=== PATIENT | female | born 1940 | race Caucasian/White ===

== ENCOUNTER 2017-06-10 09:51 | Inpatient (IN) | payer MEDICARE, OTHER ==
[~2017-06-10] VITALS: Ht 154.9 cm; Wt 90.7 kg
[2017-06-10] MEDS ORDERED: IV NS 0.9% 1,000 ML BAG IV ONE ×2 (11:30→13:30)
[2017-06-10 11:46] LABS: BASOPHILS # (AUTO) 0.1 /CMM (0.0-0.2); BASOPHILS % (AUTO) 0.7 % (0.0-2.0); EOSINOPHILS % (AUTO) 0.5 % (0.0-6.0); HEMATOCRIT 47 % (33-45); HEMOGLOBIN 15.7 g/dL (11.5-14.8); LYMPHOCYTES # (AUTO) 1.4 /CMM (0.8-4.8); MEAN CORPUSCULAR HEMOGLOBIN 29 PG (26.0-33.0); MEAN CORPUSCULAR HGB CONC 34 g/dl (31.0-36.0); MEAN CORPUSCULAR VOLUME 87 fL (82-100); MONOCYTES # (AUTO) 1.1 /CMM (0.1-1.30); MONOCYTES % (AUTO) 12.6 % (2.0-12.0); NEUTROPHILS # (AUTO) 6.2 /CMM (1.8-8.9); NEUTROPHILS % (AUTO) 70.2 % (43.0-81.0); PLATELET COUNT (AUTO) 188 /CMM (150-450); RDW COEFFICIENT OF VARIATION 14.4 (11.5-15.0); RED BLOOD CELL COUNT(AUTO) 5.34 MIL/uL (4.0-5.2); WHITE BLOOD COUNT (AUTO) 8.8 K/uL (4.3-11.0)
[2017-06-10 11:58] LABS: CALCIUM, SERUM 8.5 mg/dL (8.5-10.1); CARBON DIOXIDE 24 mmol/L (21-32); CHLORIDE 99 mmol/L (98-107); CREATININE 1.1 mg/dL (0.6-1.3); GLUCOSE 210 mg/dL (74-106); POTASSIUM 4.9 mmol/L (3.5-5.1); SODIUM SERUM 135 mmol/L (136-145); UREA NITROGEN, BLOOD 21 mg/dL (7-18)
[2017-06-10] MEDS ORDERED: DULO60CA45 PO (12:43)
[2017-06-10] MEDS ORDERED: LEVO100T9 PO (12:43)
[2017-06-10] MEDS ORDERED: POTA20TA83 PO (12:43)
[2017-06-10] MEDS ORDERED: METF10002 PO (12:43)
[2017-06-10] MEDS ORDERED: INSU100I30 SQ (12:43)
[2017-06-10] MEDS ORDERED: TORS20TA3 PO (12:43)
[2017-06-10] MEDS ORDERED: TRAM50TA2 PO (12:43)
[2017-06-10] MEDS ORDERED: SIMV20TA6 PO (12:44)
[2017-06-10] MEDS ORDERED: BENZOIN COMPOUND TINCT 60 ML BOTTLE ONE (13:50)
[2017-06-10] MEDS ORDERED: DILTIAZEM HCL 30 MG TABLET PO ONE (14:00)
[2017-06-10] MEDS ORDERED: DILTIAZEM HCL 30 MG TABLET ONE (14:01)
[2017-06-10 16:00] VITALS: BP 132/78
[2017-06-10 16:15] VITALS: BP 132/78
--- NOTE | 2017-06-10 16:34 | NUR ---
RN NOTES RECEIVED PT FROM ER, A&0X3, ON ROOM AIR NO SOB OR DISTRESS. A FIB ON THE TELE CLARA HR 73. PT ABLE TO AMBULATE WITH WALKER. WALKER PLACED BY BEDSIDE. RFA 18G IV SITE INTACT, NO IVF CURRENTLY. BED LOCKED AND IN LOWEST POSITION, CALL LIGHT WITHIN REACH, WILL CONT TO CLARA.
[2017-06-10] MEDS ORDERED: ENOXAPARIN SODIUM 40 MG/0.4 ML DISP.SYRIN SQ SCH (17:00)
[2017-06-10] MEDS ORDERED: MAGNESIUM HYDROXIDE 30 ML UDC PO PRN (17:00)
[2017-06-10] MEDS ORDERED: HYDROCODONE/APAP 5/325MG 1 EACH TABLET PO PRN (17:00)
[2017-06-10] MEDS ORDERED: Z GUARD REMEDY 2 OZ OINT TP PRN (17:00)
[2017-06-10] MEDS ORDERED: ONDANSETRON HCL/PF 4 MG/2 ML VIAL IVP PRN (17:00)
[2017-06-10] MEDS ORDERED: MAG HYDROX/AL HYDROX/SIMETH 30 ML UDC PO PRN (17:00)
[2017-06-10] MEDS ORDERED: DILTIAZEM HCL IV 125 MG in IV NS 0.9% 100 ML IV PRN (17:00)
[2017-06-10] MEDS ORDERED: ACETAMINOPHEN 325 MG TABLET PO PRN (17:00)
[2017-06-10] MEDS ORDERED: ALBUTEROL FS 2.5 MG/3 ML VIAL.NEB NEB PRN (17:30)
[2017-06-10] MEDS ORDERED: DEXTROSE 50%-WATER 50 ML DISP.SYRIN IV PRN (17:30)
[2017-06-10] MEDS ORDERED: METOPROLOL TARTRATE INJ 5 MG/5 ML AMPUL IVP PRN (17:30)
--- NOTE | 2017-06-10 17:40 | NUR ---
RN NOTES PT CONVERTED TO SR. DR WILLIAM MADE AWARE. JONEL HSU HELD.
[2017-06-10 18:01] LABS: INR 0.96 (0.87-1.13)
[2017-06-10] MEDS: BLOOD SUGAR DIAGNOSTIC 1 EACH STRIP IN SCH ×2 (18:12→21:47)
[2017-06-10] MEDS: INSULIN REGULAR, HUMAN 100 UNIT/ML 3 ML VIAL SQ PRN ×2 (18:12→21:51)
[2017-06-10 18:55] LABS: TROPONIN I 0.041 ng/mL (0.00-0.056)
[2017-06-10] MEDS: ENOXAPARIN SODIUM 100 MG/ML DISP.SYRIN SQ SCH (18:56)
[2017-06-10 19:01] LABS: THYROID STIMULATING HORMONE 2.706 uIU/mL (0.358-3.74)
[2017-06-10 20:00] VITALS: BP 120/52
[2017-06-10] MEDS: IPRATROPIUM NEB FS 0.5 MG/2.5 ML AMPUL.NEB NEB SCH (20:39)
[2017-06-10 21:09] VITALS: BP 120/52
[2017-06-10] MEDS: TRAMADOL HCL 50 MG TABLET PO PRN (21:49)
[2017-06-10] MEDS: CARVEDILOL 6.25 MG TABLET PO SCH (21:50)
[2017-06-10] MEDS: INSULIN GLARGINE, 100 UNIT/ML CARTRIDGE SQ SCH (21:52)
[2017-06-10] MEDS ORDERED: SIMVASTATIN 20 MG TABLET PO SCH (22:00)
[2017-06-10] MEDS: IV NS 0.9% 1,000 ML IV PRN (22:22)
[2017-06-11] VITALS (8 sets, daily range): BP systolic 104–127; BP diastolic 43–72
[2017-06-11] MEDS: BLOOD SUGAR DIAGNOSTIC 1 EACH STRIP IN SCH ×6 (01:06→21:35)
--- NOTE | 2017-06-11 01:11 | NUR ---
RN NOTES PATIENT'S BLOOD SUGAR 142. PATIENT REFUSING SSI AT THIS TIME. EXPLAINED RISKS AND CONSEQUENCES OF REFUSING MD ORDERS. PATIENT VERBALIZES UNDERSTANDING, STILL STRONGLY REFUSING. WILL CONTINUE TO CLOSELY MONITOR. URINE SPECIMEN COLLECTED, LAB CALLED FOR PICKUP.
--- NOTE | 2017-06-11 04:24 | NUR ---
RN NOTES PATIENT'S BLOOD SUGAR 139. PATIENT REFUSING SSI AT THIS TIME. EXPLAINED RISKS AND CONSEQUENCES OF REFUSING MD ORDERS. PATIENT VERBALIZES UNDERSTANDING, STILL STRONGLY REFUSING. WILL CONTINUE TO CLOSELY MONITOR
[2017-06-11 05:15] LABS: APPEARANCE,URINE SL CLOUDY (CLEAR); BILIRUBIN,URINE NEGATIVE (NEGATIVE); BLOOD, URINE NEGATIVE Ery/uL (NEGATIVE); COLOR,URINE YELLOW (YELLOW); KETONES,URINE NEGATIVE (NEGATIVE); LEUKOCYTE ESTERASE ,URINE 3+ (NEGATIVE); NITRITE, URINE NEGATIVE (NEGATIVE); PROTEIN,URINE 1+ mg/dl (NEGATIVE); UGLUCOSE NEGATIVE (NEGATIVE); UROBILINOGEN,URINE 0.2 EU/dL (0.2)
[2017-06-11 05:20] LABS: PH,URINE >9.0 (5.0-8.0)
[2017-06-11 05:42] LABS: BACTERIA,URINE Many /HPF (None Seen); RBC,URINE 0-2 /HPF (0-2); WBC,URINE 21-50 /HPF (0-3)
[2017-06-11 05:43] LABS: SQUAMOUS EPITHELIAL CELL,UR Few /HPF (None Seen)
[2017-06-11] MEDS: ENOXAPARIN SODIUM 100 MG/ML DISP.SYRIN SQ SCH (06:25)
[2017-06-11] MEDS: IPRATROPIUM NEB FS 0.5 MG/2.5 ML AMPUL.NEB NEB SCH ×3 (07:11→19:40)
--- NOTE | 2017-06-11 07:30 | NUR ---
RN PARAMJIT NOTE: PATIENT IN BED, AWAKE ALERT AND ABLE TO MAKE NEEDS KNOWN. RESPIRATION EVEN AND UNLABORED. PER PT, SHE DOES NOT WANT TO USE THE OXYGEN AND SHE FELT BETTER TODAY. SATURATING 97% IN RA. DENIED PAIN AT THIS TIME. PER PT, SHE HAS CHRONIC BACK PAIN IN THE PAST AND IT'S 5/10 AND IT IS TOLERABLE ESPECIALLY WHEN SHE AMBULATES INSIDE THE ROOM GOING TO THE BATHROOM. REPOSITIONING HELP. CALL LIGHT WITHIN REACH. NEEDS ANTICIPATED.
[2017-06-11 07:49] LABS: BASOPHILS % (AUTO) 0.5 % (0.0-2.0); EOSINOPHILS # (AUTO) 0.1 /CMM (0.0-0.7); EOSINOPHILS % (AUTO) 2.1 % (0.0-6.0); HEMATOCRIT 38 % (33-45); HEMOGLOBIN 12.6 g/dL (11.5-14.8); LYMPHOCYTES # (AUTO) 1.6 /CMM (0.8-4.8); LYMPHOCYTES % (AUTO) 37.5 % (20.0-44.0); MEAN CORPUSCULAR HEMOGLOBIN 30 PG (26.0-33.0); MEAN CORPUSCULAR HGB CONC 34 g/dl (31.0-36.0); MEAN CORPUSCULAR VOLUME 89 fL (82-100); MONOCYTES # (AUTO) 0.8 /CMM (0.1-1.30); MONOCYTES % (AUTO) 18.6 % (2.0-12.0); NEUTROPHILS # (AUTO) 1.8 /CMM (1.8-8.9); NEUTROPHILS % (AUTO) 41.3 % (43.0-81.0); PLATELET COUNT (AUTO) 164 /CMM (150-450); RDW COEFFICIENT OF VARIATION 15.6 (11.5-15.0); RED BLOOD CELL COUNT(AUTO) 4.23 MIL/uL (4.0-5.2); WHITE BLOOD COUNT (AUTO) 4.4 K/uL (4.3-11.0)
[2017-06-11 08:08] LABS: CHOLESTEROL 109 mg/dL (<200); HDL CHOLESTEROL 29 mg/dL (40-60); LDL 52 mg/dL (0-99); TRIGLYCERIDES 203 mg/dL (30-150)
[2017-06-11 08:11] LABS: CALCIUM, SERUM 7.8 mg/dL (8.5-10.1); CARBON DIOXIDE 25 mmol/L (21-32); CHLORIDE 106 mmol/L (98-107); CREATININE 0.8 mg/dL (0.6-1.3); GLUCOSE 121 mg/dL (74-106); MAGNESIUM 1.4 mg/dL (1.8-2.4); PHOSPHORUS 3.2 mg/dL (2.5-4.9); POTASSIUM 4.2 mmol/L (3.5-5.1); SODIUM SERUM 140 mmol/L (136-145); UREA NITROGEN, BLOOD 16 mg/dL (7-18)
[2017-06-11 08:13] LABS: IRON, SERUM 35 ug/dl (50-175); TOTAL IRON BINDING CAPACITY 239 ug/dl (250-450)
[2017-06-11] MEDS: LEVOTHYROXINE SODIUM 100 MCG TABLET PO SCH (08:28)
[2017-06-11] MEDS: DULOXETINE HCL 30 MG CAPSULE.DR PO SCH (08:28)
[2017-06-11] MEDS: INSULIN REGULAR, HUMAN 100 UNIT/ML 3 ML VIAL SQ PRN ×3 (08:47→21:39)
[2017-06-11 09:14] LABS: LYMPHOCYTES % (MANUAL) 34 % (16-48); MONOCYTES % (MANUAL) 14 % (0-11.0); NEUTROPHILS % (MANUAL) 52 (42-76)
[2017-06-11] MEDS: CARVEDILOL 6.25 MG TABLET PO SCH ×2 (09:58→21:34)
[2017-06-11] MEDS: TRAMADOL HCL 50 MG TABLET PO PRN ×2 (10:01→21:34)
[2017-06-11 10:44] LABS: THYROID STIMULATING HORMONE 2.579 uIU/mL (0.358-3.74)
[2017-06-11] MEDS: Magnesium 1GM/D5W 100ML PREMIX 100 ML IV SCH ×3 (11:46→14:58)
[2017-06-11] MEDS ORDERED: Magnesium 1GM/D5W 100ML PREMIX 100 ML IV SCH (12:00)
[2017-06-11] MEDS: SOD FERRIC GLUC 125 MG in IV NS 0.9% 100 ML IV SCH (16:17)
--- NOTE | 2017-06-11 20:04 | NUR ---
RN PARAMJIT NOTE: PATIENT IN BED, AWAKE ALERT AND ABLE TO MAKE NEEDS KNOWN. RESPIRATION EVEN AND UNLABORED STILL IN RA SATURATING 95%. PATIENT DENIED PAIN AT THIS TIME. HOB ELEVATED. CALL LIGHT WITHIN REACH. BED ALARM AND LOCKED AT ALL TIMES. (L) FA IV LINE NOTED PATENT AND INTACT. CALL LIGHT WITHIN REACH. REPORT GIVEN TO PM SHIFT NURSE FOR CONTINUITY OF CARE.
[2017-06-11] MEDS: INSULIN GLARGINE, 100 UNIT/ML CARTRIDGE SQ SCH (21:38)
[2017-06-11] MEDS: IV NS 0.9% 1,000 ML IV PRN (21:39)
[2017-06-12] VITALS: BP 133/61
[2017-06-12] MEDS: BLOOD SUGAR DIAGNOSTIC 1 EACH STRIP IN SCH ×6 (00:16→22:13)
[2017-06-12] MEDS: ZOLPIDEM TARTRATE 5 MG TABLET PO PRN (00:17)
[2017-06-12 04:00] VITALS: BP 109/60
--- NOTE | 2017-06-12 04:30 | NUR ---
RN NOTES: RECEIVED REPORT FOR LINDSAY FROM DAVIN ESPINOZA. PT IN BED, AOX4, ON ROOM AIR, BREATHING EVEN AND UNLABORED. APPEARS CALM AND IN NO DISTRESS. BED IN LOWEST AND LOCKED POSITION, SIDERAILS UP X 3. WILL CONT TO MONITOR.
--- NOTE | 2017-06-12 06:39 | NUR ---
TIRE STRIPPER CLOSING NOTES: PATIENT IN BED, AOX4, ON O2 AT 2 LPM VIA NC, BREATHING EVEN AND UNLABORED. APPEARS CALM AND IN NO DISTRESS. ON TELE MONITORING: SR RATE OF 60S. PROVIDED FOR COMFORT AND SAFETY. BED IN LOWEST AND LOCKED POSITION, SIDERAILS UP X 3. CALL LIGHT WITHIN REACH. WILL ENDORSE TO AM RN FOR LINDSAY.
[2017-06-12 07:00] LABS: BASOPHILS % (AUTO) 0.3 % (0.0-2.0); EOSINOPHILS # (AUTO) 0.1 /CMM (0.0-0.7); EOSINOPHILS % (AUTO) 1.6 % (0.0-6.0); HEMATOCRIT 37 % (33-45); HEMOGLOBIN 12.2 g/dL (11.5-14.8); LYMPHOCYTES # (AUTO) 1.4 /CMM (0.8-4.8); LYMPHOCYTES % (AUTO) 31.5 % (20.0-44.0); MEAN CORPUSCULAR HEMOGLOBIN 29 PG (26.0-33.0); MEAN CORPUSCULAR HGB CONC 33 g/dl (31.0-36.0); MEAN CORPUSCULAR VOLUME 88 fL (82-100); MONOCYTES # (AUTO) 0.6 /CMM (0.1-1.30); MONOCYTES % (AUTO) 13.6 % (2.0-12.0); NEUTROPHILS # (AUTO) 2.4 /CMM (1.8-8.9); PLATELET COUNT (AUTO) 163 /CMM (150-450); RDW COEFFICIENT OF VARIATION 15.1 (11.5-15.0); RED BLOOD CELL COUNT(AUTO) 4.14 MIL/uL (4.0-5.2); WHITE BLOOD COUNT (AUTO) 4.5 K/uL (4.3-11.0)
[2017-06-12 07:09] LABS: ALANINE AMINOTRANSFERASE 32 U/L (12-78); ALBUMIN 2.6 g/dL (3.4-5.0); ALKALINE PHOSPHATASE 81 U/L (46-116); ASPARTATE AMINOTRANSFERASE 23 U/L (15-37); BILIRUBIN,TOTAL 0.4 mg/dL (0.2-1.0); CARBON DIOXIDE 26 mmol/L (21-32); CHLORIDE 108 mmol/L (98-107); CREATININE 0.8 mg/dL (0.6-1.3); GLUCOSE 98 mg/dL (74-106); MAGNESIUM 2.1 mg/dL (1.8-2.4); PHOSPHORUS 3.3 mg/dL (2.5-4.9); POTASSIUM 3.8 mmol/L (3.5-5.1); SODIUM SERUM 143 mmol/L (136-145); TOTAL PROTEIN, SERUM 5.9 g/dL (6.4-8.2); UREA NITROGEN, BLOOD 13 mg/dL (7-18)
--- NOTE | 2017-06-12 07:24 | NUR ---
ROLL ICER MACHINE OPENING NOTES RECEIVED PT FROM NIGHTSHIFT NURSE IN STABLE CONDITION. PT IS A/O X3. NO SOB OR SIGNS OF DISTRESS NOTED. BREATHING IS EVEN AND UNLABORED. PT DENIES ANY FEVER OR CHILLS AT THIS TIME. SHE FURTHER DENIES ANY CHEST PAIN OR DISCOMFORT. SHE IS SINUS RHYTHM ON THE TELE MONITOR WITH A HR OF 75. IV NOTED TO BE PATENT AND INTACT INFUSING NS ORDERED. PT TOLERATING INFUSION WELL. NO REDNESS OR SIGNS OF INFILTRATION NOTED. BED IN LOW LOCKED POSITION, SIDE RAILS UP X3, CALL LIGHT WITHIN REACH. WILL CONTINUE TO MONITOR
[2017-06-12] MEDS: IPRATROPIUM NEB FS 0.5 MG/2.5 ML AMPUL.NEB NEB SCH ×2 (07:46→19:55)
[2017-06-12 08:00] VITALS: BP 121/62
[2017-06-12] MEDS: LEVOTHYROXINE SODIUM 100 MCG TABLET PO SCH (09:03)
[2017-06-12] MEDS: INSULIN REGULAR, HUMAN 100 UNIT/ML 3 ML VIAL SQ PRN ×4 (09:04→22:16)
[2017-06-12] MEDS: DULOXETINE HCL 30 MG CAPSULE.DR PO SCH (09:05)
[2017-06-12] MEDS: CARVEDILOL 6.25 MG TABLET PO SCH ×2 (09:06→22:14)
[2017-06-12] MEDS: TRAMADOL HCL 50 MG TABLET PO PRN ×2 (09:06→17:25)
[2017-06-12] MEDS: ENOXAPARIN SODIUM 40 MG/0.4 ML DISP.SYRIN SQ SCH (09:19)
--- NOTE | 2017-06-12 13:00 | NUR ---
RT PT EATING AT THE MOMENT TX REFUSED. NO SOB OR RESP DISTRESS NOTED.
[2017-06-12] MEDS: SOD FERRIC GLUC 125 MG in IV NS 0.9% 100 ML IV SCH (13:57)
[2017-06-12 16:00] VITALS: BP 132/66
--- NOTE | 2017-06-12 18:56 | NUR ---
MS RN CLOSING NOTES PT REMAINS IN STABLE CONDITION. ALL NEEDS MET DURING SHIFT AND ORDERS CARRIED OUT ACCORDINGLY. ALL DUE MEDS GIVEN. IV REMAINS PATENT AND INTACT. SAFETY MEASURES REMAIN IN PLACE. WILL ENDORSE TO NIGHTSHIFT NURSE FOR LINDSAY
--- NOTE | 2017-06-12 20:33 | NUR ---
MS1/RN RECEIVE PATIENT AWAKE, ALERT, ORIENTED, COMFORTABLE, NO C/O PAIN, NO DISTRESS NOTED, JUST AMBULATED FROM THE BATHROOM AND BACK TO BED WHICH SHE TOLERATED WELL, WILL MONITOR.
[2017-06-12 22:00] VITALS: BP 120/71
[2017-06-12] MEDS: INSULIN GLARGINE, 100 UNIT/ML CARTRIDGE SQ SCH (22:15)
--- NOTE | 2017-06-13 00:43 | NUR ---
MS1/RN PATIENT IS SLEEPING AT AROUSABLE, APPEAR COMFORTABLE, NO DISTRESS NOTED, CALL LIGHT IN REACH. WILL CONTINUE TO MONITOR.
[2017-06-13] MEDS: ZOLPIDEM TARTRATE 5 MG TABLET PO PRN (00:53)
[2017-06-13] MEDS: INSULIN REGULAR, HUMAN 100 UNIT/ML 3 ML VIAL SQ PRN ×2 (00:57→08:32)
[2017-06-13] MEDS: BLOOD SUGAR DIAGNOSTIC 1 EACH STRIP IN SCH ×3 (01:01→08:30)
[2017-06-13 05:19] VITALS: BP 130/88
--- NOTE | 2017-06-13 06:27 | NUR ---
MS1/RN PATIENT IS STILL SLEEPING AT THIS TIME, AROUSABLE, APPEAR COMFORTABLE, NO DISTRESS NOTED, ALL NEEDS ATTENDED AT THIS TIME. WILL CONTINUE TO MONITOR.
[2017-06-13] MEDS: IPRATROPIUM NEB FS 0.5 MG/2.5 ML AMPUL.NEB NEB SCH (07:45)
[2017-06-13 08:00] VITALS: BP 148/79
[2017-06-13] MEDS: TRAMADOL HCL 50 MG TABLET PO PRN (08:27)
[2017-06-13] MEDS: LEVOTHYROXINE SODIUM 100 MCG TABLET PO SCH (08:27)
[2017-06-13] MEDS: DULOXETINE HCL 30 MG CAPSULE.DR PO SCH (08:28)
[2017-06-13 08:29] VITALS: BP 148/79
[2017-06-13] MEDS: CARVEDILOL 6.25 MG TABLET PO SCH (08:29)
[2017-06-13] MEDS: ENOXAPARIN SODIUM 40 MG/0.4 ML DISP.SYRIN SQ SCH (08:29)
[2017-06-13] MEDS ORDERED: LEVO500T75 PO (10:27)
[2017-06-13] MEDS ORDERED: LEVOFLOXACIN (500MG) 500 MG TABLET PO SCH (10:30)
[2017-06-13] MEDS ORDERED: LEVOFLOXACIN (500MG) 500 MG TABLET PO ONE (11:00)
--- NOTE | 2017-06-13 15:01 | NUR ---
MS RN NOTES RECEIVED PT ON BED SLEEPING. ALERT ORIENTED X4. ON NASAL CANNULA SATURATING WELL. IV ACCES PATENT AND INTACT. WILL CONTINUE TO MONITOR PT CLOSELY.
--- NOTE | 2017-06-13 15:02 | NUR ---
ABIMAEL RN NOTES PT DISCHARGED STABLE. EXIT CARE DONE.
[2017-06-14] MEDS ORDERED: LEVOFLOXACIN (500MG) 500 MG TABLET PO ONE (11:00)
[2017-06-14] MEDS ORDERED: LEVOFLOXACIN (250MG) 250 MG TABLET PO SCH (11:00)
== END 2017-06-13 13:53 | disposition home or self-care (01) | DRG 203 ==
LOC: ER 09:55 → TELE1 15:04 → TELE-TD 17:06 → TELE1 06-11 12:47 → MEDSG1 06-12 11:34
PROVIDERS: ADMIT Internal Medicine; ATTEND Internal Medicine
DX: J20.9 Acute bronchitis, unspecified (principal); E83.42 Hypomagnesemia; I48.0 Paroxysmal atrial fibrillation; E11.9 Type 2 diabetes mellitus without complications; E86.0 Dehydration; E03.9 Hypothyroidism, unspecified; E78.5 Hyperlipidemia, unspecified; F32.9 Major depressive disorder, single episode, unspecified; I10 Essential (primary) hypertension; Z88.1 Allergy status to other antibiotic agents; Z79.4 Long term (current) use of insulin; Z79.899 Other long term (current) drug therapy; I70.0 Atherosclerosis of aorta
CPT/HCPCS: 36415; 71045-TC; 80048-TC; 80053-TC; 80061-TC; 81000-TC; 82306; 82746; 82962-TC; 83540-TC; 83735-TC; 84100-TC; 84439-TC; 84443-TC; 84484-TC; 85025-TC; 85610-TC; 87081-TC; 87086-TC; 87186-TC; 93307-TC; 94799-TC; A4606; J1650; J1815; J2916; J3475; J3490; J7030; Z7610

== ENCOUNTER 2018-05-09 16:26 | Emergency (ER) | payer MEDICARE, OTHER ==
[~2018-05-09] VITALS: Ht 152.4 cm; Wt 84.4 kg
[2018-05-09 16:26] VITALS: BP 160/57
[~2018-05-09 16:26] MED LIST: DULO60CA45 PO; INSU100I30 SQ; LEVO100T9 PO; LEVO500T75 PO; METF-442 PO; POTA20TA83 PO; SIMV20TA6 PO; TORS20TA3 PO; TRAM50TA2 PO
--- NOTE | 2018-05-09 17:18 | NUR ---
NORMA PICC LINE NURSE ON SITE.
--- NOTE | 2018-05-09 18:38 | NUR ---
Patient discharged to home in stable condition. Written and verbal after care instructions given. Patient verbalizes understanding of instruction.
== END 2018-05-09 18:32 | disposition home or self-care (01) ==
LOC: ER 16:28
DX: T82.898A Other specified complication of vascular prosthetic devices, implants and grafts, initial encounter (principal); E11.40 Type 2 diabetes mellitus with diabetic neuropathy, unspecified; Z88.1 Allergy status to other antibiotic agents; Z60.2 Problems related to living alone; Z79.4 Long term (current) use of insulin; Z79.84 Long term (current) use of oral hypoglycemic drugs; Z79.899 Other long term (current) drug therapy
CPT/HCPCS: 36556; 71045; 99285; A4606; C1769; 36569

== ENCOUNTER 2019-04-19 17:42 | Emergency (ER) | payer MEDICARE, MEDICAID ==
[~2019-04-19] VITALS: Ht 170.2 cm; Wt 127.0 kg
[~2019-04-19 17:42] MED LIST changes: +SIMV-46 PO; -SIMV20TA6 PO
--- NOTE | 2019-04-19 17:42 | NUR ---
PT [id number] ONGOING CPR UPPON OMI. PER EMS FULL ARREST, 2 EPIS GIVEN PROGRAM DEVELOPMENT MANAGER, SHOCKEDX1.
--- NOTE | 2019-04-19 17:43 | NUR ---
PT CALLED 911 C/O CHEST PAIN. FOUND BY EMS TO HAVE AGONAL RESP. PT LOST PULSE. CPR WAS STARTED BY EMS THEN BROUGHT TO [facility] WITH CPR ONGOING AND BAG VALVE MASK. WHEN ARRIVED, PT IN ASYSTOLE, CPR WAS CONTINUED. UPON ASSESSMENT PT HAD AN IO ON L MANCIA. SEE CODE SHEET FOR CODE BLUE DETAILS.
[2019-04-19] MEDS ORDERED: NOREPINEPHRINE 4 MG/4 ML AMPUL IV ONE (17:44)
[2019-04-19] MEDS ORDERED: EPINEPHRINE (1:10,000) SYRINGE 1 MG/10 ML DISP.SYRIN IVP ONE (17:44)
[2019-04-19] MEDS ORDERED: AMIODARONE 150 MG/3 ML VIAL IV ONE (17:44)
[2019-04-19] MEDS ORDERED: SODIUM BICARBONATE SYR 50 MEQ/50 ML DISP.SYRIN IV ONE (17:44)
[2019-04-19] MEDS ORDERED: CALCIUM CHLORIDE 1,000 MG/10 ML DISP.SYRIN IV ONE (17:44)
--- NOTE | 2019-04-19 18:00 | NUR ---
CALLED SON, LEFT A VOICEMAIL
--- NOTE | 2019-04-19 18:34 | NUR ---
RT RECD PT ON CARDIAC ARREST CPR STARTED, INTUBATED WITH 7.5 22CM AT LIPLINE BY MD EASTMAN COLOR CHANGE C02, EQUAL BILATERAL BREATH SOUNDS SECURED TUBE, CONTINUED CPR
[2019-04-19 18:39] LABS: BASOPHILS # (AUTO) 0.1 /CMM (0.0-0.2); BASOPHILS % (AUTO) 0.9 % (0.0-2.0); HEMATOCRIT 42 % (33-45); HEMOGLOBIN 10.6 g/dL (11.5-14.8); LYMPHOCYTES # (AUTO) 4.8 /CMM (0.8-4.8); LYMPHOCYTES % (AUTO) 44.2 % (20.0-44.0); MEAN CORPUSCULAR HGB CONC 25 g/dl (31.0-36.0); MEAN CORPUSCULAR VOLUME 117 fL (82-100); MONOCYTES # (AUTO) 0.4 /CMM (0.1-1.30); MONOCYTES % (AUTO) 3.8 % (2.0-12.0); NEUTROPHILS # (AUTO) 5.5 /CMM (1.8-8.9); NEUTROPHILS % (AUTO) 50.1 % (43.0-81.0); PLATELET COUNT (AUTO) 81 /CMM (150-450); RED BLOOD CELL COUNT(AUTO) 3.59 MIL/uL (4.0-5.2); WHITE BLOOD COUNT (AUTO) 10.9 K/uL (4.3-11.0)
[2019-04-19 18:49] LABS: CALCIUM, SERUM 9.1 mg/dL (8.5-10.1); CHLORIDE 108 mmol/L (98-107); POTASSIUM 4.9 mmol/L (3.5-5.1); SODIUM SERUM 144 mmol/L (136-145)
[2019-04-19 19:00] LABS: CREATININE 1.9 mg/dL (0.6-1.3); UREA NITROGEN, BLOOD 25 mg/dL (7-18)
[2019-04-19 19:02] LABS: CARBON DIOXIDE 8 mmol/L (21-32)
[2019-04-19 19:05] LABS: GLUCOSE 1037 mg/dL (74-106)
--- NOTE | 2019-04-19 19:11 | NUR ---
CALLED [facility]. NOT A CORNERS CASE PER TORRES GUARD CAPTAIN.
--- NOTE | 2019-04-19 19:22 | NUR ---
NOTIFIED PT'S PRIMARY DR DE LA ROSA; DR BANEGAS PLUMBING FOREMAN. DR BANEGAS STATES HE WILL NOTIFY DR DE LA ROSA.
--- NOTE | 2019-04-19 19:25 | NUR ---
MESSAGE LEFT FOR SON TARA TO CALL BACK TO ER
--- NOTE | 2019-04-19 19:59 | NUR ---
SPOKE W ONE LE[facility]ANCY, CASE #[id number]. PT IS ELIGIBLE.
[2019-04-19 20:04] LABS: BAND % (MANUAL) 3 % (0.0-5.0); LYMPHOCYTES % (MANUAL) 19 % (16-48); NEUTROPHILS % (MANUAL) 78 (42-76)
--- NOTE | 2019-04-19 20:45 | NUR ---
pt deepika saenz via shanae with emt and security
== END 2019-04-19 20:49 ==
LOC: ER 17:43
DX: I46.9 Cardiac arrest, cause unspecified (principal); I48.91 Unspecified atrial fibrillation; E78.5 Hyperlipidemia, unspecified; E03.9 Hypothyroidism, unspecified; I10 Essential (primary) hypertension; E11.9 Type 2 diabetes mellitus without complications; E66.01 Morbid (severe) obesity due to excess calories; Z88.1 Allergy status to other antibiotic agents; Z88.0 Allergy status to penicillin; Z60.2 Problems related to living alone; Z79.899 Other long term (current) drug therapy; Z79.4 Long term (current) use of insulin; Z68.41 Body mass index [BMI] 40.0-44.9, adult
CPT/HCPCS: 31500; 36415; 36569; 80048; 84484; 85025; 93005 ×2; 99291; J0171; J0282; J3490 ×2